=== PATIENT | female | born 1970 | race Caucasian/White ===

== ENCOUNTER 2019-02-10 12:03 | Emergency (ER) | payer OTHER ==
[2019-02-10 13:04] LABS: Absolute Lymphocytes (CBC) 1.8 K/uL (0.7-4.9); Absolute Monocytes 0.5 K/uL (0.1-1.3); Basophils % 0.6 % (0-1.3); Eosinophils % 2.1 % (0-4.4); Hematocrit 40.5 % (36.0-45.0); Lymphocytes % 33.2 % (15.3-44.8); Monocytes % 8.9 % (3.3-12.3); RBC Red Blood Cell Count 4.55 M/uL (3.86-4.86)
[2019-02-10 13:14] LABS: Albumin 4.2 g/dL (3.4-5.0); Bilirubin Direct 0.1 mg/dL (0-0.2); Bilirubin Total 0.5 mg/dL (0.2-1.0); Potassium 3.9 mmol/L (3.5-5.1)
--- NOTE | 2019-02-10 13:43 | RAD REPORT ---
EXAM DESCRIPTION: CT - Abdomen Pelvis W Contrast - 02/10/2019 1:28 pm CLINICAL HISTORY: Abdominal pain with vomiting/hematochezia COMPARISON: none. TECHNIQUE: Computed axial tomography of the abdomen pelvis was obtained. 100 cc Isovue-300 was admin istered intravenously. Oral contrast was not requested which limits evaluation of bowel. All CT scans are performed using dose optimization technique as appropriate and may include automated exposure control or mA/KV adjustment according to patient size. FINDINGS: Cholecystectomy. Tiny low-density area within the spleen is nonspecific but may represent a cyst. The liver, pancreas and appear unremarkable. Extrarenal pelves. A renal mass is not noted. There is no evidence of diverticulitis. Tiny umbilical hernia Fluid within nondilated small bowel IMPRESSION: Fluid within nondilated small bowel may indicate an enteritis
--- NOTE | 2019-02-10 14:06 | EDPHYS ---
Physician Documentation [facility] Name: Enrique Billy Age: 48 yrs Sex: Female : 1970 Arrival Date: 02/10/2019 Time: 12:07 Bed 8 Private MD: ED Physician Quique Segal HPI: 02/10 12:42 This 48 yrs old Female presents to ER via Ambulatory with complaints of ps1 Abdominal Pain. 12:42 patient states over last couple of days has had RUQ and flank pain. Has reportedly had ps1 dark/black stools that started this morning. States that she hurt her knee a couple of weeks ago and has taken NSAIDS. She is s/p francis/appy. No fever. Pain radiates to back. . 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 - Social history:: Smoking status: unknown. - Ebola Screening: : No symptoms or risks identified at this time. ROS: 12:42 Constitutional: Negative for fever, chills, and weight loss, Eyes: Negative for injury, ps1 pain, redness, and discharge, Cardiovascular: Negative for chest pain, palpitations, and edema, Respiratory: Negative for shortness of breath, cough, wheezing, and pleuritic chest pain, : Negative for injury, bleeding, discharge, and swelling, Skin: Negative for injury, rash, and discoloration, Neuro: Negative for headache, weakness, numbness, tingling, and seizure. 12:42 Abdomen/GI: Positive for abdominal pain, black/tarry stool. 12:42 MS/extremity: Positive for pain, tenderness, of the left knee. Exam: 12:42 Constitutional: This is a well developed, well nourished patient who is awake, alert, ps1 and in no acute distress. Head/Face: Normocephalic, atraumatic. Eyes: Pupils equal round and reactive to light, extra-ocular motions intact. Lids and lashes normal. Conjunctiva and sclera are non-icteric and not injected. Chest/axilla: Normal chest wall appearance and motion. Nontender with no deformity. No lesions are appreciated. Cardiovascular: Regular rate and rhythm. No gallops, murmurs, or rubs. Normal PMI, no JVD. No pulse deficits. Respiratory: Lungs have equal breath sounds bilaterally, clear to auscultation and percussion. No rales, rhonchi or wheezes noted. No increased work of breathing, no retractions or nasal flaring. Skin: Warm, dry with normal turgor. Normal color with no rashes, no lesions, and no evidence of cellulitis. MS/ Extremity: Pulses equal, no cyanosis. Neurovascular intact. Full, normal range of motion. Neuro: Awake and alert, GCS 15, oriented to person, place, time, and situation. Cranial nerves II-XII grossly intact. Sensory grossly intact. Psych: Awake, alert, with orientation to person, place and time. Behavior, mood, and affect are within normal limits. 12:42 Abdomen/GI: Inspection: abdomen appears normal, Bowel sounds: normal, Palpation: soft, mild abdominal tenderness, in the right upper quadrant and right lower quadrant, Rectal exam: is unremarkable, Stool: brown, guaiac negative. Vital Signs: 12:11 BP 150 / 94; Pulse 74; Resp 18; Temp 99.1(TE); Pulse Ox 99% on R/A; Weight 71.67 kg; hj Height 5 ft. 6 in. (167.64 cm); Pain 8/10; 14:06 BP 109 / 72; Pulse 64; Resp 16; Temp 98; Pulse Ox 98% ; bp 12:11 Body Mass Index 25.50 (71.67 kg, 167.64 cm) MDM: 12:36 Patient medically screened. ps1 14:02 Data reviewed: vital signs, nurses notes, lab test result(s), radiologic studies, CT ps1 scan, and as a result, I will discharge patient. Counseling: I had a detailed discussion with the patient and/or guardian regarding: the historical points, exam findings, and any diagnostic results supporting the discharge/admit diagnosis, radiology results, the need for outpatient follow up, to return to the emergency department if symptoms worsen or persist or if there are any questions or concerns that arise at home. ED course: Guaiac negative. Non-specific pain. No blood. CT negative. No Leukocytosis. No fever. Vitals wnl other than BP. Pt stable for dc. Home with zofran, bentyl, and carafate. . 02/10 12:19 Order name: Creatinine for Radiology; Complete Time: 13:10 ps1 02/10 12:19 Order name: CBC with Diff; Complete Time: 13:10 [facility] 02/10 12:19 Order name: Hepatic Function; Complete Time: 13:17 ps1 02/10 12:19 Order name: Lipase; Complete Time: 13:17 ps1 02/10 12:19 Order name: CMP; Complete Time: 13:17 ps1 02/10 13:09 Order name: Urine Dipstick--Ancillary (enter results) 02/10 12:09 Order name: Urine Dipstick-Ancillary (obtain specimen); Complete Time: 12:25 02/10 12:19 Order name: IV Saline Lock; Complete Time: 12:38 [facility] 02/10 12:19 Order name: Labs collected and sent; Complete Time: 12:38 [facility] 02/10 13:09 Order name: Urine --Ancillary (enter results) 02/10 13:26 Order name: Abdomen ; Complete Time: 14:02 EDMS Administered Medications: No medications were administered Disposition: 02/10/19 14:04 Discharged to Home. Impression: Generalized abdominal pain. - Condition is Stable. - Discharge Instructions: Abdominal Pain, Adult, Peptic Ulcer. - Prescriptions for Bentyl 10 mg Oral Capsule - take 1 capsule by ORAL route every 6 hours As needed; 40 capsule. Carafate 1 gram Oral Tablet - take 1 tablet by ORAL route 4 times per day take on an empty stomach, beginning on waking and last dose at bedtime; 100 tablet. Zofran 4 mg Oral Tablet - take 1 tablet by ORAL route every 12 hours As needed; 20 tablet. - Medication Reconciliation Form, Thank You Letter, Antibiotic Education, Prescription Opioid Use form. - Follow up: Private Physician; When: As needed; Reason: Further diagnostic work-up, Recheck today's complaints, Continuance of care, Re-evaluation by your physician. Follow up: Emergency Department; When: As needed; Reason: Worsening of condition. - Problem is new. - Symptoms are unchanged. Signatures: Dispatcher [employer] EDMS Ramon Townsend RN RN Dustin Arroyo, RN RN bp Quique Segal MD MD ps1 Corrections: (The following items were deleted from the chart) 12:15 12:10 Urine Test ordered. [facility] 13:26 12:23 Abdomen Pelvis W/Wo Con+CT.RAD.BRZ ordered. EDDE EDMS 14:31 14:04 02/10/2019 14:04 Discharged to Home. Impression: Generalized abdominal pain. bp Condition is Stable. Forms are Medication Reconciliation Form, Thank You Letter, Antibiotic Education, Prescription Opioid Use. Follow up: Private Physician; When: As needed; Reason: Further diagnostic work-up, Recheck today's complaints, Continuance of care, Re-evaluation by your physician. Follow up: Emergency Department; When: As needed; Reason: Worsening of condition. Problem is new. Symptoms are unchanged. ps1
--- NOTE | 2019-02-10 14:06 | ER ---
Nurse's Notes [facility] Name: Enrique Billy Age: 48 yrs Sex: Female : 1970 Arrival Date: 02/10/2019 Time: 12:07 Bed 8 Private MD: Diagnosis: Generalized abdominal pain Presentation: 02/10 12:07 Presenting complaint: Patient states: was sent from PCP for eval of abdominal pain; "Friday, i started having abd pain, sharp pain on the R side of my stomach, lower of my R rib cage, this morning i have black stool", reports chills;. Transition of care: patient was not received from another setting of care. Onset of symptoms was February 10, 2019. Risk Assessment: Do you want to hurt yourself or someone else? Patient reports no desire to harm self or others. Initial Sepsis Screen: Does the patient meet any 2 criteria? No. Patient's initial sepsis screen is negative. Does the patient have a suspected source of infection? No. Patient's initial sepsis screen is negative. Care prior to arrival: None. 12:07 Method Of Arrival: Ambulatory 12:07 Acuity: JJ 3 hj Triage Assessment: 12:15 General: Appears in no apparent distress. uncomfortable, Behavior is cooperative, bp appropriate for age, anxious. Pain: Complains of pain in right upper quadrant and right lower quadrant. EENT: No deficits noted. Neuro: Level of Consciousness is awake, alert, obeys commands, Oriented to person, place, time, situation, Appropriate for age. Cardiovascular: No deficits noted. Respiratory: Airway is patent Respiratory effort is even, unlabored, Respiratory pattern is regular, symmetrical. GI: Reports nausea. : No signs and/or symptoms were reported regarding the genitourinary system. Derm: No deficits noted. Musculoskeletal: Circulation, motion, and sensation intact. Range of motion: intact in all extremities. 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 - Social history:: Smoking status: unknown. - Ebola Screening: : No symptoms or risks identified at this time. Screenin:11 Abuse screen: Denies threats or abuse. Denies injuries from another. Nutritional bp screening: No deficits noted. Tuberculosis screening: No symptoms or risk factors identified. Fall Risk None identified. Assessment: 12:11 General: SEE TRIAGE NOTE. bp 12:15 GI: Bowel sounds present X 4 quads. Abd is soft X 4 quads. bp 14:28 Reassessment: PT D/C HOME AMBULATORY WITH FAMILY, DX WITH GEN ABDOMINAL PAIN. bp Vital Signs: 12:11 BP 150 / 94; Pulse 74; Resp 18; Temp 99.1(TE); Pulse Ox 99% on R/A; Weight 71.67 kg; hj Height 5 ft. 6 in. (167.64 cm); Pain 8/10; 14:06 BP 109 / 72; Pulse 64; Resp 16; Temp 98; Pulse Ox 98% ; bp 12:11 Body Mass Index 25.50 (71.67 kg, 167.64 cm) ED Course: 12:07 Patient arrived in ED. hj 12:09 Triage completed. hj 12:11 Quique Segal MD is Attending Physician. ps1 12:11 Arm band placed on right wrist. hj 12:11 Patient has correct armband on for positive identification. Bed in low position. Call bp light in reach. Side rails up X2. Adult w/ patient. 12:18 Dustin Gordon, RN is Primary Nurse. bp 12:24 Urine collected: clean catch specimen, clear, deisy colored. jb1 12:36 Initial lab(s) drawn, by ar, sent to lab. Inserted saline lock: 22 gauge in left jb1 antecubital area, using aseptic technique. Blood collected. 13:25 CT completed. Patient tolerated procedure well. Patient moved to CT via wheelchair. sj Patient moved back from CT. 13:29 Abdomen In Process Unspecified. EDMS 14:28 No provider procedures requiring assistance completed. IV discontinued, intact, bp bleeding controlled, No redness/swelling at site. Pressure dressing applied. Administered Medications: No medications were administered Outcome: 14:04 Discharge ordered by . ps1 14:29 Discharged to home ambulatory, with family. bp 14:29 Condition: stable 14:29 Discharge instructions given to patient, Instructed on discharge instructions, follow up and referral plans. medication usage, Demonstrated understanding of instructions, follow-up care, medications, Prescriptions given X 3. 14:31 Patient left the ED. bp Signatures: Dispatcher [employer] EDMS Sulaiman Flood [email or web address] Katia Bermudez Henry, RN Dustin Zhao RN RN bp Quique Segal MD MD ps1 Corrections: (The following items were deleted from the chart) 12:13 12:07 Presenting complaint: Patient states: was sent from PCP for eval of abdominal hj pain; hj 12:13 12:11 71.67 kg; Height 5 ft. 6 in.; BMI: 25.5; Pain 8/10; hj hj 12:15 12:11 Pulse 74bpm; Resp 18bpm; Pulse Ox 99% RA; Temp 99.1F Temporal; 71.67 kg; Height 5 hj ft. 6 in.; BMI: 25.5; Pain 8/10; hj
[2019-02-10] MEDS ORDERED: LIDOCAINE VISCOUS 2% SOLN 15 ML UDC ONE (14:35)
[2019-02-10] MEDS ORDERED: MAGNE/ALUM HYDROXD 30 ML UCUP ONE (14:35)
[2019-02-10 14:50] LABS: Urine Blood TRACE (NEG); Urine Glucose NEGATIVE (NEG); Urine Protein NEGATIVE (NEG)
== END 2019-02-10 14:31 | disposition home or self-care (01) ==
LOC: ER 12:03
DX: R10.84 Generalized abdominal pain (principal); Z88.2 Allergy status to sulfonamides; Z88.5 Allergy status to narcotic agent; Z88.8 Allergy status to other drugs, medicaments and biological substances
CPT/HCPCS: 36415; 74177; 80053; 80076; 81003; 81025; 83690; 85025; 99284; Q9967

== ENCOUNTER 2019-05-25 16:32 | Emergency (ER) | payer OTHER ==
[2019-05-25] MEDS ORDERED: FENTANYL CITR 100 MCG/2 ML ONE ×2 (17:31→19:22)
[2019-05-25] MEDS ORDERED: CEFTRIAXONE/SWI 1gm 1 GM/10 ML SYR ONE (17:32)
[2019-05-25] MEDS ORDERED: NA CHLORIDE 0.9% 1,000 ML ONE (17:32)
[2019-05-25] MEDS ORDERED: DIAZEPAM 10 MG/2 ML INJ SYRINGE ONE (17:32)
[2019-05-25 17:35] LABS: Absolute Lymphocytes (CBC) 1.5 K/uL (0.7-4.9); Basophils % 0.3 % (0-1.3); Lymphocytes % 20.9 % (15.3-44.8); MPV 7.4 fL (7.6-11.3); RBC Red Blood Cell Count 4.17 M/uL (3.86-4.86)
[2019-05-25 17:56] LABS: Albumin 3.6 g/dL (3.4-5.0); Bilirubin Direct 0.2 mg/dL (0-0.2); Bilirubin Total 0.5 mg/dL (0.2-1.0); Potassium 3.8 mmol/L (3.5-5.1); Protein, Total 7.5 g/dL (6.4-8.2)
--- NOTE | 2019-05-25 19:33 | ER ---
Nurse's Notes [facility] Name: Enrique Billy Age: 48 yrs Sex: Female : 1970 Arrival Date: 05/25/2019 Time: 16:35 Bed 27 Private MD: Abram Sidhu Diagnosis: Cutaneous abscess of right axilla Presentation: 05/25 16:37 Presenting complaint: Patient states: "I think I had a spider bite under my right sv armpit and I went to see Dr Hurst yesterday and he opened it up but I'm getting the chills and the redness is spreading.". Transition of care: patient was not received from another setting of care. Onset of symptoms was May 2019. Care prior to arrival: None. 16:37 Method Of Arrival: Ambulatory sv 16:37 Acuity: JJ 3 sv 17:43 Risk Assessment: Do you want to hurt yourself or someone else? Patient reports no aj1 desire to harm self or others. Initial Sepsis Screen: Does the patient meet any 2 criteria? No. Patient's initial sepsis screen is negative. Does the patient have a suspected source of infection? Yes: Skin breakdown/wound. Historical: - Allergies: 16:37 Hydrocodone-Acetaminophen; sv 16:37 Phenergan; sv 16:37 Sulfa (Sulfonamide Antibiotics); sv - Ebola Screening: : Patient denies travel to an Ebola-affected area in the 21 days before illness onset. Screenin:53 Abuse screen: Denies threats or abuse. Denies injuries from another. Nutritional aj1 screening: No deficits noted. Tuberculosis screening: No symptoms or risk factors identified. 17:44 Fall Risk None identified. aj1 Assessment: 16:53 General: Appears in no apparent distress. uncomfortable, Behavior is cooperative, aj1 anxious, crying. Pain: Complains of pain in right axilla. Neuro: Level of Consciousness is awake, alert, obeys commands, Oriented to person, place, time, situation. Cardiovascular: Patient's skin is warm and dry. Respiratory: Airway is patent Respiratory effort is even, unlabored, Respiratory pattern is regular, symmetrical. GI: No signs and/or symptoms were reported involving the gastrointestinal system. : No signs and/or symptoms were reported regarding the genitourinary system. EENT: No signs and/or symptoms were reported regarding the EENT system. Derm: Abscess located on right axilla is red, is raised. Musculoskeletal: No signs and/or symptoms reported regarding the musculoskeletal system. Range of motion: limited in right shoulder. 17:42 Reassessment: Patient appears in no apparent distress at this time. No changes from aj1 previously documented assessment. Patient and/or family updated on plan of care and expected duration. Pain level reassessed. Patient is alert, oriented x 3, equal unlabored respirations, skin warm/dry/pink. 18:45 Reassessment: Patient appears in no apparent distress at this time. No changes from aj1 previously documented assessment. Patient and/or family updated on plan of care and expected duration. Pain level reassessed. Patient is alert, oriented x 3, equal unlabored respirations, skin warm/dry/pink. 19:50 Reassessment: Patient appears in no apparent distress at this time. No changes from aj1 previously documented assessment. Patient and/or family updated on plan of care and expected duration. Pain level reassessed. Patient is alert, oriented x 3, equal unlabored respirations, skin warm/dry/pink. Vital Signs: 16:38 BP 151 / 98; Pulse 85; Resp 20; Temp 98.4; Pulse Ox 98% ; Weight 69.4 kg; Height 5 ft. sv 6 in. (167.64 cm); 17:42 BP 140 / 83; Pulse 77; Resp 18; Pulse Ox 99% on R/A; aj1 18:15 Temp 98.2(O); aj1 18:45 BP 121 / 74; Pulse 72; Resp 18; Pulse Ox 100% on R/A; aj1 19:51 BP 137 / 65; Pulse 75; Resp 18; Pulse Ox 98% on R/A; aj1 16:38 Body Mass Index 24.69 (69.40 kg, 167.64 cm) sv ED Course: 16:35 Patient arrived in ED. mr 16:35 Abram Sidhu MD is Private Physician. mr 16:37 Triage completed. sv 16:41 Faisal Car MD is Attending Physician. kayla 16:47 Yesenia Adamson FNP-C is [facility]. snw 16:50 Genia Foy, ABIDA is Primary Nurse. aj1 16:53 Patient has correct armband on for positive identification. Bed in low position. aj1 16:53 No provider procedures requiring assistance completed. aj1 17:27 Initial lab(s) drawn, by me, sent to lab. Inserted saline lock: 20 gauge in right iw antecubital area, using aseptic technique. Blood collected. 19:31 Carson Villalobos MD is Referral Physician. snw 19:51 IV discontinued, intact, bleeding controlled, No redness/swelling at site. Pressure aj1 dressing applied. Administered Medications: 17:36 Drug: NS 0.9% 1000 ml Route: IV; Rate: 1 bolus; Site: left antecubital; aj1 18:00 Follow up: IV Status: Completed infusion; IV Intake: 1000ml aj1 17:40 Drug: fentaNYL (PF) 50 mcg Route: IVP; Site: left antecubital; aj1 18:30 Follow up: Response: No adverse reaction; Pain is decreased aj1 17:41 Drug: Valium 2 mg Route: IVP; Site: left antecubital; aj1 18:30 Follow up: Response: No adverse reaction aj1 17:41 Drug: Rocephin 1 grams Route: IV; Rate: calculated rate; Site: left antecubital; aj1 17:43 Follow up: IV Status: Completed infusion; IV Intake: 10ml aj1 19:24 Drug: fentaNYL (PF) 50 mcg {Note: RASS score 1, patietn is restless.} Route: IVP; Site: [facility] left antecubital; 19:50 Follow up: Response: No adverse reaction; Pain is decreased; RASS: Alert and Calm (0) aj1 Intake: 17:43 IV: 10ml; Total: 10ml. aj1 18:00 IV: 1000ml; Total: 1010ml. aj1 Outcome: 19:32 Discharge ordered by . snw 19:51 Patient left the ED. aj1 Signatures: Genia Foy RN RN aj1 Jazmyne Gandhi, RN Faisal Galvan MD MD cha Therrien, Shelly, TALENT AC[employer]ISITION SOURCER-C TALENT [employer]ITION S[employer]ER-Cs[facility] Janis Foy Irene, RN RN iw
--- NOTE | 2019-05-25 19:33 | EDPHYS ---
Physician Documentation [facility] Name: Enrique Billy Age: 48 yrs Sex: Female : 1970 Arrival Date: 05/25/2019 Time: 16:35 Bed 27 Private MD: Abram Sidhu ED Physician Faisal Car HPI: 05/25 17:59 This 48 yrs old Female presents to ER via Ambulatory with complaints of Wound snw Infection. 17:59 Onset: The symptoms/episode began/occurred suddenly, 3 day(s) ago, and became worse and snw became persistent. Associated signs and symptoms: Pertinent positives: increased pain to right axilla. Modifying factors: The patient symptoms are alleviated by remaining still. The patient has not experienced similar symptoms in the past. The patient has been recently seen by a physician: the patient's primary care provider, yesterday, with similar presenting complaints, i\T\d, culture, IM rocephin, po augmentin. Historical: - Allergies: 16:37 Hydrocodone-Acetaminophen; sv 16:37 Phenergan; sv 16:37 Sulfa (Sulfonamide Antibiotics); sv - Ebola Screening: : Patient denies travel to an Ebola-affected area in the 21 days before illness onset. ROS: 17:58 Constitutional: Negative for fever, chills, and weight loss, Eyes: Negative for injury, snw pain, redness, and discharge, ENT: Negative for injury, pain, and discharge, Neck: Negative for injury, pain, and swelling, Cardiovascular: Negative for chest pain, palpitations, and edema, Respiratory: Negative for shortness of breath, cough, wheezing, and pleuritic chest pain, Abdomen/GI: Negative for abdominal pain, nausea, vomiting, diarrhea, and constipation, Back: Negative for injury and pain, : Negative for injury, bleeding, discharge, and swelling, Neuro: Negative for headache, weakness, numbness, tingling, and seizure, Psych: Negative for depression, anxiety, suicide ideation, homicidal ideation, and hallucinations. 17:58 MS/extremity: Positive for pain, of the right arm, increased pain with movement. 17:58 Skin: Positive for swelling, of the right axilla. Exam: 17:46 Constitutional: This is a well developed, well nourished patient who is awake, alert, snw and in no acute distress. Head/Face: Normocephalic, atraumatic. Eyes: Pupils equal round and reactive to light, extra-ocular motions intact. Lids and lashes normal. Conjunctiva and sclera are non-icteric and not injected. Cornea within normal limits. Periorbital areas with no swelling, redness, or edema. ENT: Nares patent. No nasal discharge, no septal abnormalities noted. Tympanic membranes are normal and external auditory canals are clear. Oropharynx with no redness, swelling, or masses, exudates, or evidence of obstruction, uvula midline. Mucous membranes moist. Neck: Trachea midline, no thyromegaly or masses palpated, and no cervical lymphadenopathy. Supple, full range of motion without nuchal rigidity, or vertebral point tenderness. No Meningismus. Chest/axilla: Normal chest wall appearance and motion. Nontender with no deformity. No lesions are appreciated. Cardiovascular: Regular rate and rhythm with a normal S1 and S2. No gallops, murmurs, or rubs. Normal PMI, no JVD. No pulse deficits. Respiratory: Lungs have equal breath sounds bilaterally, clear to auscultation and percussion. No rales, rhonchi or wheezes noted. No increased work of breathing, no retractions or nasal flaring. Abdomen/GI: Soft, non-tender, with normal bowel sounds. No distension or tympany. No guarding or rebound. No evidence of tenderness throughout. Back: No spinal tenderness. No costovertebral tenderness. Full range of motion. MS/ Extremity: Pulses equal, no cyanosis. Neurovascular intact. Full, normal range of motion. Neuro: Awake and alert, GCS 15, oriented to person, place, time, and situation. Cranial nerves II-XII grossly intact. Motor strength 5/5 in all extremities. Sensory grossly intact. Cerebellar exam normal. Normal gait. Psych: Awake, alert, with orientation to person, place and time. Behavior, mood, and affect are within normal limits. 17:46 Skin: Appearance: normal except for affected area, cellulitis, that is mild, well demarcated, on the right axilla, + swollen axillary lymph nodes to right, + decreased ROM secondary to pain, s/p small I\T\D yesterday at Dr. Ingram. Vital Signs: 16:38 BP 151 / 98; Pulse 85; Resp 20; Temp 98.4; Pulse Ox 98% ; Weight 69.4 kg; Height 5 ft. sv 6 in. (167.64 cm); 17:42 BP 140 / 83; Pulse 77; Resp 18; Pulse Ox 99% on R/A; aj1 18:15 Temp 98.2(O); aj1 18:45 BP 121 / 74; Pulse 72; Resp 18; Pulse Ox 100% on R/A; aj1 19:51 BP 137 / 65; Pulse 75; Resp 18; Pulse Ox 98% on R/A; aj1 16:38 Body Mass Index 24.69 (69.40 kg, 167.64 cm) sv MDM: 16:41 Patient medically screened. kayla 19:34 Data reviewed: vital signs, nurses notes. Data interpreted: Pulse oximetry: on room air snw is 100 %. Interpretation: normal. Counseling: I had a detailed discussion with the patient and/or guardian regarding: the historical points, exam findings, and any diagnostic results supporting the discharge/admit diagnosis, lab results, the need for outpatient follow up, to return to the emergency department if symptoms worsen or persist or if there are any questions or concerns that arise at home. Special discussion: Based on the history and exam findings, there is no indication for further emergent testing or inpatient evaluation. I discussed with the patient/guardian the need to see the general surgeon for further evaluation of the symptoms. 05/25 16:48 Order name: Basic Metabolic Panel; Complete Time: 18:00 snw 05/25 16:48 Order name: CBC with Diff; Complete Time: 18:00 snw 05/25 16:48 Order name: Hepatic Function; Complete Time: 18:00 snw 05/25 16:48 Order name: Blood Culture Adult (2) snw 05/25 16:48 Order name: Procalcitonin; Complete Time: 18:30 snw 05/25 16:48 Order name: Lactate; Complete Time: 18:00 snw 05/25 16:48 Order name: Labs collected and sent; Complete Time: 17:28 snw Administered Medications: 17:36 Drug: NS 0.9% 1000 ml Route: IV; Rate: 1 bolus; Site: left antecubital; [facility] 18:00 Follow up: IV Status: Completed infusion; IV Intake: 1000ml aj 17:40 Drug: fentaNYL (PF) 50 mcg Route: IVP; Site: left antecubital; aj1 18:30 Follow up: Response: No adverse reaction; Pain is decreased 17:41 Drug: Valium 2 mg Route: IVP; Site: left antecubital; aj1 18:30 Follow up: Response: No adverse reaction 17:41 Drug: Rocephin 1 grams Route: IV; Rate: calculated rate; Site: left antecubital; aj1 17:43 Follow up: IV Status: Completed infusion; IV Intake: 10ml 19:24 Drug: fentaNYL (PF) 50 mcg {Note: RASS score 1, patietn is restless.} Route: IVP; Site: aj left antecubital; 19:50 Follow up: Response: No adverse reaction; Pain is decreased; RASS: Alert and Calm (0) [facility] Disposition: 05/26 07:58 Co-signature as Attending Physician, Faisal Car MD I agree with the assessment and kayla plan of care. Disposition: 05/25/19 19:32 Discharged to Home. Impression: Cutaneous abscess of right axilla. - Condition is Stable. - Discharge Instructions: Skin Abscess, Lymphadenopathy. - Prescriptions for Doxycycline Hyclate 100 mg Oral Tablet - take 1 tablet by ORAL route every 12 hours; 20 tablet. Diclofenac Sodium 75 mg Oral Tablet Sustained Release - take 1 tablet by ORAL route 2 times per day; 30 tablet. - Medication Reconciliation Form, Thank You Letter, Antibiotic Education, Prescription Opioid Use form. - Follow up: Carson Villalobos MD; When: 1 - 2 days; Reason: Recheck today's complaints, Continuance of care. - Problem is an ongoing problem. - Symptoms are unchanged. Signatures: Dispatcher [employer] Genia Alberto RN RN aj1 Jazmyne Gandhi RN RN sv Anderson, Corey, MD MD cha Therrien, Shelly, ASSISTANT MANAGER QUALITY MANAGEMENT-C ASSISTANT MANAGER QUALITY MANAGEMENT-Csnw Corrections: (The following items were deleted from the chart) 05/25 19:51 19:32 05/25/2019 19:32 Discharged to Home. Impression: Cutaneous abscess of right aj1 axilla. Condition is Stable. Forms are Medication Reconciliation Form, Thank You Letter, Antibiotic Education, Prescription Opioid Use. Follow up: Dr. Carson Villalobos; When: 1 - 2 days; Reason: Recheck today's complaints, Continuance of care. Problem is an ongoing problem. Symptoms are unchanged. snw
[2019-05-25 20:21] VITALS: TEMP 98.2
[2019-05-25 20:24] VITALS: BP 137/65; O2SAT 98
== END 2019-05-25 19:51 | disposition home or self-care (01) ==
LOC: ER 16:32
DX: L02.411 Cutaneous abscess of right axilla (principal); Z88.2 Allergy status to sulfonamides; Z88.6 Allergy status to analgesic agent
CPT/HCPCS: 87040 ×2; 85025; 80048; 36415; 80076; 83605; 84145; 96375; 96374; 99283; J3360; J3010 ×2; J0696; J7030